=== PATIENT | male | born 1990 | race Caucasian/White ===

== ENCOUNTER 2018-04-07 11:32 | Emergency (ER) | payer MEDICAID ==
[~2018-04-07] VITALS: Ht 177.8 cm; Wt 79.4 kg
[2018-04-07 11:32] VITALS: BP 134/71
== END 2018-04-07 12:30 | disposition home or self-care (01) ==
LOC: ER 11:39
DX: S80.12XA Contusion of left lower leg, initial encounter (principal); W10.8XXA Fall (on) (from) other stairs and steps, initial encounter; Y93.39 Activity, other involving climbing, rappelling and jumping off; Y92.89 Other specified places as the place of occurrence of the external cause; Y99.8 Other external cause status
CPT/HCPCS: 73590; 99284; A4606; Z7610

== ENCOUNTER 2018-08-21 10:44 | Emergency (ER) | payer MEDICAID ==
[~2018-08-21] VITALS: Ht 177.8 cm; Wt 90.7 kg
[2018-08-21 10:54] VITALS: BP 141/79
--- NOTE | 2018-08-21 12:33 | NUR ---
pt for discharge. ACI given verbalized understanding [place] speaking only ([place] Suh Interprets) Dawit bandage applied by SHANIQUE Schafer
== END 2018-08-21 13:10 | disposition home or self-care (01) ==
LOC: ER 10:48
DX: M70.51 Other bursitis of knee, right knee (principal); Y93.89 Activity, other specified
CPT/HCPCS: 29505; 73564; 99283; A4606; Z7610